=== PATIENT | male | born 1930 | race Caucasian/White ===

== ENCOUNTER 2017-03-27 14:02 | Emergency (ER) | payer MEDICARE ==
[~2017-03-27] VITALS: Ht 170.2 cm; Wt 83.7 kg
[~2017-03-27 14:02] MED LIST: ACDPT PO; ALLP100T PO; ASP81TEC PO; ATR20T PO; BSP5T PO; CLOP75TA PO; DOCU100T7 PO; FURO40TA4 PO; METO25TA PO; MULT1CAP27 PO; OMEG-12 PO; PNT40TEC PO; POTA10CA43 PO; TMSL.4C PO
[2017-03-27] MEDS ORDERED: morphine INJ 10 MG/ML 1ML (SYR OR VIAL) IV STA (14:16)
[2017-03-27] MEDS ORDERED: NS IV 500 ML 500 ML IV ONE ×2 (14:16→15:18)
--- NOTE | 2017-03-27 14:16 | ED Chest Pain ---
General Chief Complaint: Chest Pain Stated Complaint: STOMACH AND BACK PAIN/ELEV BP Source: patient Exam Limitations: no limitations History of Present Illness Time seen by provider: 14:09 Initial Comments Patient presents to ER by private conveyance with chief complaint of chest pain that started about 2 hours ago he points to his epigastric region. He says it radiates to his back he says he had this same pain when he was having a heart attack last time. He is not aware whether or not he has any abdominal aortic aneurysm or problems. He is on aspirin 81 mg. Prior to arriving at the ER he did not take any medicines such as nitroglycerin or aspirin. He says when he started having his chest pain he checked his blood pressure and it was 180s over 90s. He typically runs 115/60. He quit smoking 30-50 years ago. He does not have any thyroid issues nor does he take anything for blood pressure other than his metoprolol. he does not have diabetes. 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 He did take his Zantac at the time the pain started but it did not do anything for him. He is not having any nausea at this time. He denies any numbness or tingling in his arms hands jaw or neck. Allergies and Home Medications Allergies Coded Allergies: Sulfa (Sulfonamide Antibiotics) (Unverified Allergy, Unknown, 03/27/17) Home Medications Acetaminophen/Diphenhydramine 1 Ea Tab, 1 EA PO HS, (Reported) Allopurinol 100 Mg Tablet, 1 TAB PO DAILY, #30 (Reported) Aspirin 81 Mg Tabec, 81 MG PO DAILY, (Reported) Atorvastatin 20 Mg Tablet, 1 EACH PO DAILY, (Reported) Clopidogrel Bisulfate 75 Mg Tablet, 1 EACH PO DAILY, (Reported) Docusate Sodium 100 Mg Tablet, 100 MG PO HS, (Reported) Furosemide 40 Mg Tablet, 1 EACH PO DAILY, (Reported) Metoprolol Succinate 25 Mg Tab.sr.24h, 1 EACH PO DAILY, (Reported) Multivitamins 1 Each Capsule, 1 EACH PO DAILY, (Reported) [place]-3/Dha/Epa/Fish Oil 1 Each Capsule.dr, 1 EACH PO DAILY, (Reported) Pantoprazole Sod 40 Mg Tab, 40 MG PO HS, (Reported) Potassium Chloride 10 Meq Capsule.sa, 1 EACH PO DAILY WITH FOOD, (Reported) Tamsulosin Hcl 0.4 Mg Cap, 0.4 MG PO DAILY@12, (Reported) Review of Systems Constitutional: No chills, No diaphoresis, No fever, No malaise Respiratory: Denies Cough, Shortness of Air (mild) Cardiovascular: See HPI, Chest Pain, Edema Gastrointestinal: Denies Abdominal Pain, Denies Constipated, Denies Diarrhea, Denies Nausea Genitourinary: Denies Burning, Denies Discharge Musculoskeletal: No back pain, No joint pain Skin: No pruritus, No rash Psychiatric/Neurological: Denies Headache, Denies Numbness Past Awbugkz-Boetho-Wvsyyg Hx Patient Social History Alcohol Use: Denies Use Recreational Drug Use: No Smoking Status: Former Smoker Recent Foreign Travel: No Contact w/Someone Who Travel: No Immunizations Up To Date Date of Influenza Vaccine: May 29, 2011 Respiratory Hx Respiratory Disorders: No Cardiovascular Hx Cardiac Disorders: Yes Neurological Hx Neurological Disorders: Yes Reproductive System Hx Reproductive Disorders: No Genitourinary Hx Genitourinary Disorders: Yes Gastrointestinal Hx Gastrointestinal Disorders: Yes Musculoskeletal Hx Musculoskeletal Disorders: Yes Endocrine Hx Endocrine Disorders: No HEENT HX ENT Disorders: No Psychosocial Hx Psychiatric Problems: Yes Blood Transfusions Hx Blood Disorders: No Physical Exam Vital Signs Vital Sign - Last 12Hours 03/27/17 14:04 Temp 99.5 Pulse 70 Resp 22 B/P (MAP) 198/94 Pulse Ox 100 O2 Delivery Nasal Cannula O2 Flow Rate 2.0 FiO2 100 Capillary Refill : General Appearance: WD/WN, Anxious, Moderate Distress Neck: Non Tender, Supple Respiratory: Lungs Clear, Normal Breath Sounds Cardiovascular: Regular Rate, Rhythm, No JVD Gastrointestinal: Normal Bowel Sounds, Soft, No Abnormal Bowel Sounds, No Distended, No Guarding, No Hepatomegaly, No Mass, No Rebound, Tenderness ( epigastric) Extremity: Normal Capillary Refill, Pedal Edema (1+) Neurologic/Psychiatric: Alert, Oriented x3 Skin: Normal Color, Warm/Dry Lymphatic: No Adenopathy Focused Exam Lactic Acid Level Laboratory Tests Test 03/27/17 16:04 Lactic Acid Level 1.63 MMOL/L (0.50-2.00) Progress/Results/Core Measures Results/Orders Lab Results Laboratory Tests Test 03/27/17 14:15 03/27/17 14:25 03/27/17 16:04 Range/Units White Blood Count 15.4 H 4.3-11.0 10^3/uL Red Blood Count 4.80 4.35-5.85 10^6/uL Hemoglobin 14.8 13.3-17.7 G/DL Hematocrit 45 40-54 % Mean Corpuscular Volume 94 80-99 FL Mean Corpuscular Hemoglobin 31 25-34 PG Mean Corpuscular Hemoglobin Concent 33 32-36 G/DL Red Cell Distribution Width 14.0 10.0-14.5 % Platelet Count 263 130-400 10^3/uL Mean Platelet Volume 10.6 H 7.4-10.4 FL Neutrophils (%) (Auto) 87 H 42-75 % Lymphocytes (%) (Auto) 10 L 12-44 % Monocytes (%) (Auto) 2 0-12 % Eosinophils (%) (Auto) 1 0-10 % Basophils (%) (Auto) 0 0-10 % Neutrophils # (Auto) 13.3 H 1.8-7.8 X 10^3 Lymphocytes # (Auto) 1.5 1.0-4.0 X 10^3 Monocytes # (Auto) 0.3 0.0-1.0 X 10^3 Eosinophils # (Auto) 0.2 0.0-0.3 10^3/uL Basophils # (Auto) 0.0 0.0-0.1 10^3/uL Neutrophils % (Manual) 74 % Lymphocytes % (Manual) 9 % Monocytes % (Manual) 6 % Eosinophils % (Manual) 2 % Basophils % (Manual) 1 % Reactive Lymphocytes 8 % Blood Morphology Comment NORMAL Prothrombin Time 12.8 12.2-14.7 SEC INR Comment 1.0 0.8-1.4 Activated Partial Thromboplast Time 31 24-35 SEC D-Dimer 1.22 H 0.00-0.49 UG/ML Sodium Level 139 135-145 MMOL/L Potassium Level 4.5 3.6-5.0 MMOL/L Chloride Level 101 98-107 MMOL/L Carbon Dioxide Level 29 21-32 MMOL/L Anion Gap 9 5-14 MMOL/L Blood Urea Nitrogen 16 7-18 MG/DL Creatinine 1.37 H 0.60-1.30 MG/DL Estimat Glomerular Filtration Rate 49 BUN/Creatinine Ratio 12 Glucose Level 115 H 70-105 MG/DL Calcium Level 9.3 8.5-10.1 MG/DL Magnesium Level 2.3 1.8-2.4 MG/DL Total Bilirubin 1.9 H 0.1-1.0 MG/DL Aspartate Amino Transf (AST/SGOT) 348 H 5-34 U/L Alanine Aminotransferase (ALT/SGPT) 282 H 0-55 U/L Alkaline Phosphatase 168 H 40-136 U/L Myoglobin 62.9 10.0-92.0 NG/ML Troponin I < 0.30 <0.30 NG/ML B-Type Natriuretic Peptide 43.9 <100.0 PG/ML Total Protein 7.6 6.4-8.2 GM/DL Albumin 4.0 3.2-4.5 GM/DL Lipase 964 H 8-78 U/L Urine Color YELLOW Urine Clarity CLEAR Urine pH 6.5 5-9 Urine Specific Ehrhardt 1.010 L 1.016-1.022 Urine Protein NEGATIVE NEGATIVE Urine Glucose (UA) NEGATIVE NEGATIVE Urine Ketones NEGATIVE NEGATIVE Urine Nitrite NEGATIVE NEGATIVE Urine Bilirubin NEGATIVE NEGATIVE Urine Urobilinogen 1 NORMAL MG/DL Urine Leukocyte Esterase NEGATIVE NEGATIVE Urine RBC (Auto) NEGATIVE NEGATIVE Urine RBC NONE /HPF Urine WBC NONE /HPF Urine Squamous Epithelial Cells RARE /HPF Urine Crystals NONE /LPF Urine Bacteria NEGATIVE /HPF Urine Casts NONE /LPF Urine Mucus NEGATIVE /LPF Urine Culture Indicated NO Lactic Acid Level 1.63 0.50-2.00 MMOL/L Micro Results Microbiology 03/27/17 Blood Culture - Preliminary, Resulted No growth 03/27/17 Blood Culture - Preliminary, Resulted No growth My Orders Orders - MYKETIFFANIE J Ekg Tracing (03/27/17 14:04) Cbc With Automated Diff (03/27/17 14:16) Magnesium (03/27/17 14:16) Chest 1 View, Ap/Pa Only (03/27/17 14:16) Cardiac Profile 1 (03/27/17 14:16) Comprehensive Metabolic Panel (03/27/17 14:16) Myoglobin Serum (03/27/17 14:16) Protime With Inr (03/27/17 14:16) Partial Thromboplastin Time (03/27/17 14:16) O2 (03/27/17 14:16) Monitor-Rhythm Ecg Trace Only (03/27/17 14:16) Aspirin Chewable Tablet (Baby Aspirin Ch (03/27/17 14:30) Rx-Nitroglycerin Sl Tabs (Rx-Nitrostat S (03/27/17 14:30) Morphine Injection (Morphine Injection (03/27/17 14:16) Saline Lock/Iv-Start (03/27/17 14:16) Lipase (03/27/17 14:16) BNP (03/27/17 14:16) Fibrin Degradation Products (03/27/17 14:16) Saline Lock/Iv-Start (03/27/17 14:16) Ns Iv 500 Ml (Sodium Chloride 0.9%) (03/27/17 14:16) Manual Differential (03/27/17 14:15) Piperacillin Sodium/Tazobactam (Zosyn Vi (03/27/17 15:30) Ns Iv 500 Ml (Sodium Chloride 0.9%) (03/27/17 15:18) Ct Abdomen/Pelvis W (03/27/17 15:18) Lactic Acid Analyzer (03/27/17 15:18) Blood Culture (03/27/17 15:18) Sputum Culture (03/27/17 15:18) Ua Culture If Indicated (03/27/17 15:18) Saline Lock/Iv-Start (03/27/17 15:18) Vital Signs Adult Sepsis Patie Q1HR (03/27/17 15:18) Remove Rings In Anticipation O (03/27/17 15:18) Iohexol Injection (Omnipaque 350 Mg/Ml 1 (03/27/17 15:30) Ns (Ivpb) (Sodium Chloride 0.9% Ivpb Bag (03/27/17 15:30) Ns (Ivpb) (Sodium Chloride 0.9% Ivpb Bag (03/27/17 15:23) Ondansetron Injection (Zofran Injectio (03/27/17 16:15) Iv Infusion <= First Hr Ed (03/27/17 ) Medications Given in ED Vital Signs/I&O Vital Sign - Last 12Hours 03/27/17 03/27/17 03/27/17 03/27/17 14:04 14:04 14:04 19:22 Temp 99.5 98.8 Pulse 70 71 Resp 22 23 B/P (MAP) 198/94 Pulse Ox 100 97 O2 Delivery Nasal Cannula Nasal Cannula Nasal Cannula Nasal Cannula O2 Flow Rate 2.0 2.00 2.0 2.00 FiO2 100 Progress Note #1: Time: 14:22 Progress Note Chest pain workup that did not respond to Zantac. CT from 2011 of the chest did not demonstrate any dilatation of the thoracic aorta. Progress Note #2: Time: 15:22 Progress Note Patient's pancreatic enzymes as well as his liver enzymes and alkaline phosphatase are all elevated. Possibility of infection versus impacted stone in the common duct. He also developed fever 100.7. We will initiate antibiotic get a sepsis panel and proceed. I will choose Zosyn to start and may need Flagyl as well. Progress Note #3: Time: 17:40 Progress Note Filling defect possibly consistent with stones given the acuteness of his attacks. X-ray condition of the MRCP probably followed by an ERCP. We have a GI here however he has a GI doctor who sees him and Vik Dumont at [place]. Saturnino Kiser. Spoke with Griselda at [facility] in [place], [place]. Gave her the particulars of the Mcgrath case and she will call back after she speaks with their accepting physicians. ECG Initial ECG Impression Date: Mar 27, 2017 Initial ECG Impression Time: 14:10 Initial ECG Rate: 68 Initial ECG Rhythm: Normal Sinus Initial ECG Intervals: Normal Initial ECG Impression: Normal, Nonspecific Changes (artifact) Initial ECG Comparisson: No Previous ECG Available Comment No ST-T wave elevation or depression Diagnostic Imaging Diagonstic Imaging: Xray Plain Films/CT/US/NM/MRI: chest Comments Mild left lower lobe atelectasis VIA [facility]. [place], [place] NAME: YVETTE KAUFFMANNN Tato MED REC#: [id number] PT STATUS: REG ER : 1930 PHYSICIAN: TIFFANIE STRINGER MD ADMIT DATE: 03/27/17/ER Draft Date of Exam:03/27/17 CHEST 1 VIEW, AP/PA ONLY INDICATION: Complaining of back pain, stomach pain. History of heart attack. EXAMINATION: Chest dated 03/27/2017 COMPARISON: 12/29/2012 FINDINGS: Heart is stable. The pulmonary vasculature is minimally prominent. There is a vague density at the left lung base which could be due to focal infiltrate or atelectasis. Remaining lungs appear to be clear other than chronic senescent change noted. No significant effusions are seen. There is no pneumothorax. IMPRESSION: Atelectasis versus infiltrate left lung base with remaining chest stable. Sternotomy wires and mediastinal clips are stable. Dictated on workstation # [id number] Dict: 03/27/17 1450 Trans: 03/27/17 1453 [facility] [id number] Interpreted by: SCOTTIE LOVE MD Electronically signed by: Reviewed: Reviewed by Me Diagonstic Imaging: CT Plain Films/CT/US/NM/MRI: abdomen (pelvis with contrast) Comments VIA [place], [place] NAME: DYLAN KAUFFMAN [facility] REC#: [id number] PT STATUS: REG ER : 1930 PHYSICIAN: TIFFANIE STRINGER MD ADMIT DATE: 03/27/17/ER Draft Date of Exam:03/27/17 CT ABDOMEN/PELVIS W INDICATION: Epigastric pain. CT of the abdomen and pelvis obtained with IV contrast bolus. There is no previous studies for comparison. Visualized portion of the lung bases show an area of parenchymal scarring in the right lower lobe with associated calcification. This measured about 2.1 cm but does appear unchanged compared with 03/08/2012, this is therefore likely due to scarring. There are some pleural calcifications and pleural thickening in the pleural space on both sides which are identical to the prior study. There is no free intraperitoneal air. The liver shows no focal lesion. The gallbladder appears moderately distended but shows no pericholecystic inflammatory change. There is a question of a poorly opaque stone in the gallbladder neck. The spleen, adrenals, and pancreas appear normal. Kidneys bilaterally are unremarkable. There is no retroperitoneal mass or adenopathy. There is no ascites or abnormal fluid collection. There is prostatic enlargement. There is extensive sigmoid diverticulosis without acute diverticulitis. On the reconstructed images, there appear to be questionable filling defects in the common duct which may represent stones. IMPRESSION: Visualized portions of lung bases demonstrate bilateral parenchymal scarring and pleural calcification and thickening, which appears identical to 03/08/2012. The gallbladder is moderately distended. There are questionable filling defects in the common bile duct, consider MRCP for further evaluation as clinically warranted. There is prostatic enlargement. There are uncomplicated colonic diverticuli. Dictated on workstation # [id number] Dict: 03/27/17 1710 Trans: 03/27/17 1721 [facility] [id number] Interpreted by: ZAC NEWMAN MD Electronically signed by: Reviewed: Reviewed by Me Departure Impression Impression: Primary Impression: Cholelithiasis with choledocholithiasis Additional Impression: Pancreatitis due to biliary obstruction Qualified Codes: K85.10 - Biliary acute pancreatitis without necrosis or infection Disposition: XFER SHT-TRM HOSP ([facility]) Condition: Stable Transfer Transfer Notes 1814 accepted to room 578 by BRET Benson. The patient is well-known to the GI doctor who he is a personal patient of the [facility]. The patient most recently lived in [place] and was cared for there. We do not have GI. Since he has a GI doctor who knows him and he will likely need GI's services if the MRCP confirms that he has stones or other lesions in his common bile duct that are causing his pancreatitis and obstructive hepatitis then it is reasonable to send the patient here is fairly stable tim[ite a low grade fever at this moment on to [place] which is approximately an hour and 45 by ground ambulance. The patient is okay with this arrangement. Family is also supportive of this arrangement as they still all live in [place] and if the patient is requiring any inpatient rehabilitation afterwards they will be able to support him in [place]. Transfer Time: 19:35 Transfer Facility: [place], [place] Method of Transfer: EMS ([facility]) Departure-Patient Inst. Referrals: RICARDO GRAY MD (PCP/Family) Primary Care Physician Copy Copies To 1: RICARDO GRAY MD, TITUS J Mar 27, 2017 14:16
[2017-03-27] MEDS ORDERED: RX-NITROGLYCERIN 0.4 MG TAB BTL 25'S SL PRN (14:30)
[2017-03-27] MEDS: ASPIRIN 81 MG CHEW (CHILDREN'S ASA) PO ONE ×2 (14:36→14:40)
[2017-03-27 14:37] LABS: BASOPHILS % (AUTO) 0 % (0-10); EOSINOPHILS # (AUTO) 0.2 10^3/uL (0.0-0.3); EOSINOPHILS % (AUTO) 1 % (0-10); LYMPHOCYTES # (AUTO) 1.5 X 10^3 (1.0-4.0); LYMPHOCYTES % (AUTO) 10 % (12-44); MEAN CORPUSCULAR HEMOGLOBIN 31 PG (25-34); MEAN CORPUSCULAR HGB CONC 33 G/DL (32-36); MEAN CORPUSCULAR VOLUME 94 FL (80-99); MEAN PLATELET VOLUME 10.6 FL (7.4-10.4); MONOCYTES # (AUTO) 0.3 X 10^3 (0.0-1.0); MONOCYTES % (AUTO) 2 % (0-12); NEUTROPHILS # (AUTO) 13.3 X 10^3 (1.8-7.8); NEUTROPHILS % (AUTO) 87 % (42-75); PLATELET COUNT 263 10^3/uL (130-400); WHITE BLOOD COUNT 15.4 10^3/uL (4.3-11.0)
[2017-03-27 14:46] LABS: PROTHROMBIN TIME PATIENT 12.8 SEC (12.2-14.7)
--- NOTE | 2017-03-27 14:53 | Diagnostic Imaging Report ---
INDICATION: Complaining of back pain, stomach pain. History of heart attack. EXAMINATION: Chest dated 03/27/2017 COMPARISON: 12/29/2012 FINDINGS: Heart is stable. The pulmonary vasculature is minimally prominent. There is a vague density at the left lung base which could be due to focal infiltrate or atelectasis. Remaining lungs appear to be clear other than chronic senescent change noted. No significant effusions are seen. There is no pneumothorax. IMPRESSION: Atelectasis versus infiltrate left lung base with remaining chest stable. Sternotomy wires and mediastinal clips are stable. Dictated by: Dictated on workstation # [id number]
[2017-03-27 14:58] LABS: ALANINE AMINOTRANSFERASE 282 U/L (0-55); ANION GAP 9 MMOL/L (5-14); ASPARTATE AMINO TRANSFERASE 348 U/L (5-34); BILIRUBIN,TOTAL 1.9 MG/DL (0.1-1.0); BLOOD UREA NITROGEN 16 MG/DL (7-18); BUN/CREATININE RATIO 12; CALCIUM 9.3 MG/DL (8.5-10.1); CARBON DIOXIDE 29 MMOL/L (21-32); CHLORIDE 101 MMOL/L (98-107); CREATININE SERUM 1.37 MG/DL (0.60-1.30); GFR ESTIMATED 49; GLUCOSE 115 MG/DL (70-105); LIPASE 964 U/L (8-78); MAGNESIUM 2.3 MG/DL (1.8-2.4); POTASSIUM 4.5 MMOL/L (3.6-5.0); SODIUM 139 MMOL/L (135-145); TOTAL PROTEIN 7.6 GM/DL (6.4-8.2)
[2017-03-27 15:04] LABS: MYOGLOBIN SERUM 62.9 NG/ML (10.0-92.0)
[2017-03-27 15:05] LABS: BASOPHILS % (MANUAL) 1 %; EOSINOPHILS % (MANUAL) 2 %; LYMPHOCYTES % (MANUAL) 9 %; NEUTROPHILS % (MANUAL) 74 %; REACTIVE LYMPHOCYTES 8 %
[2017-03-27] MEDS ORDERED: NS (IVPB) 100 ML ONE (15:23)
[2017-03-27] MEDS ORDERED: NS 100 ML (IVPB) BAG IV ONE (15:30)
[2017-03-27] MEDS ORDERED: IOHEXOL 350 MG/ML 100 ML (OMNIPAQUE 350) VIAL IV ONE (15:30)
[2017-03-27] MEDS ORDERED: PIPERACILLIN/TAZO 4.5 GM VIAL (ZOSYN) IV ONE (15:30)
[2017-03-27 15:31] LABS: BILIRUBIN,URINE NEGATIVE (NEGATIVE); KETONES,URINE NEGATIVE (NEGATIVE); LEUKOCYTE ESTERASE ,URINE NEGATIVE (NEGATIVE); NITRITE,URINE NEGATIVE (NEGATIVE); PH,URINE 6.5 (5-9); PROTEIN,URINE NEGATIVE (NEGATIVE); UROBILINOGEN,URINE 1 MG/DL (NORMAL)
[2017-03-27 15:43] LABS: SQUAMOUS EPITHELIAL CELL,UR RARE /HPF
[2017-03-27] MEDS ORDERED: ONDANSETRON 4 MG/2 ML (SDV) Z0FRAN IVP ONE (16:15)
--- NOTE | 2017-03-27 17:22 | Diagnostic Imaging Report ---
INDICATION: Epigastric pain. CT of the abdomen and pelvis obtained with IV contrast bolus. There is no previous studies for comparison. Visualized portion of the lung bases show an area of parenchymal scarring in the right lower lobe with associated calcification. This measured about 2.1 cm but does appear unchanged compared with 03/08/2012, this is therefore likely due to scarring. There are some pleural calcifications and pleural thickening in the pleural space on both sides which are identical to the prior study. There is no free intraperitoneal air. The liver shows no focal lesion. The gallbladder appears moderately distended but shows no pericholecystic inflammatory change. There is a question of a poorly opaque stone in the gallbladder neck. The spleen, adrenals, and pancreas appear normal. Kidneys bilaterally are unremarkable. There is no retroperitoneal mass or adenopathy. There is no ascites or abnormal fluid collection. There is prostatic enlargement. There is extensive sigmoid diverticulosis without acute diverticulitis. On the reconstructed images, there appear to be questionable filling defects in the common duct which may represent stones. IMPRESSION: Visualized portions of lung bases demonstrate bilateral parenchymal scarring and pleural calcification and thickening, which appears identical to 03/08/2012. The gallbladder is moderately distended. There are questionable filling defects in the common bile duct, consider MRCP for further evaluation as clinically warranted. There is prostatic enlargement. There are uncomplicated colonic diverticuli. Dictated by: Dictated on workstation # [id number]
[2017-03-27 19:22] VITALS: BP 116/57
== END 2017-03-27 19:39 | disposition short-term general hospital (02) ==
LOC: EDUNIT# 14:02 → ER 14:04
DX: K80.20 Calculus of gallbladder without cholecystitis without obstruction (principal); K80.50 Calculus of bile duct without cholangitis or cholecystitis without obstruction; K85.90 Acute pancreatitis without necrosis or infection, unspecified; K83.1 Obstruction of bile duct; Z87.891 Personal history of nicotine dependence; Z79.82 Long term (current) use of aspirin
CPT/HCPCS: 36415; 71010; 74177; 80053; 81000; 83605; 83690; 83735; 83874; 83880; 84484; 85007; 85027; 85379; 85610; 85730; 87040; 93005; 93041; 96361; 96365

== ENCOUNTER 2019-03-08 21:53 | Emergency (ER) | payer MEDICARE ==
[~2019-03-08] VITALS: Ht 167.6 cm; Wt 90.7 kg
[2019-03-08] MEDS ORDERED: ASPIRIN 81 MG CHEW (CHILDREN'S ASA) PO ONE (22:15)
--- NOTE | 2019-03-08 22:16 | ED Chest Pain ---
General Chief Complaint: Chest Pain Stated Complaint: CP Source: patient Exam Limitations: no limitations History of Present Illness Date Seen by Provider: Mar 08, 2019 Time Seen by Provider: 21:51 Initial Comments Patient presents to ER by private conveyance with chief complaint she's had left-sided chest pain radiating through to his back and she woke up this morning. He thought he was constipation so a workup a bowel movement that did not improve it. He does have a history of coronary artery disease with a CABG in [place], [place]. He's known to Dr. Pari Orellana and Rogelio [place]. He has not taken any aspirin today and says that pushing on his chest or movement does not make it any worse or better. When he was set up in the bed however his pain went from a 5 to 0 spontaneously. He has not taken any nitroglycerin or aspirin today. He does not take any blood thinners anymore. He says this pain is reminiscent of the pain he experienced before his heart attack. No shortness of breath cough nausea fevers chills history of lung disease or trauma. He's had modest swelling in his hands and feet but is no longer on diuretics. He is known to Dr. Collier. Allergies and Home Medications Allergies Coded Allergies: Sulfa (Sulfonamide Antibiotics) (Unverified Allergy, Unknown, 03/27/17) Home Medications Acetaminophen/Diphenhydramine 1 Ea Tab, 1 EA PO HS, (Reported) Allopurinol 100 Mg Tablet, 1 TAB PO DAILY, (Reported) Aspirin 81 Mg Tabec, 81 MG PO DAILY, (Reported) Atorvastatin 20 Mg Tablet, 1 EACH PO DAILY, (Reported) Clopidogrel Bisulfate 75 Mg Tablet, 1 EACH PO DAILY, (Reported) Docusate Sodium 100 Mg Tablet, 100 MG PO HS, (Reported) Furosemide 40 Mg Tablet, 1 EACH PO DAILY, (Reported) Metoprolol Succinate 25 Mg Tab.sr.24h, 1 EACH PO DAILY, (Reported) Multivitamins 1 Each Capsule, 1 EACH PO DAILY, (Reported) Merced-3/Dha/Epa/Fish Oil 1 Each Capsule.dr, 1 EACH PO DAILY, (Reported) Pantoprazole Sod 40 Mg Tab, 40 MG PO HS, (Reported) Potassium Chloride 10 Meq Capsule.sa, 1 EACH PO DAILY WITH FOOD, (Reported) Tamsulosin Hcl 0.4 Mg Cap, 0.4 MG PO DAILY@12, (Reported) Patient Home Medication List Home Medication List Reviewed: Yes Review of Systems Review of Systems Constitutional: No chills, No fever, No malaise EENTM: No Blurred Vision, No Double Vision Respiratory: Denies Cough, Denies Shortness of Air Cardiovascular: See HPI, Chest Pain, Edema Gastrointestinal: Denies Abdomen Distended, Denies Abdominal Pain, Denies Constipated, Denies Diarrhea, Denies Nausea Genitourinary: Denies Burning, Denies Discharge Musculoskeletal: No back pain, No joint pain Past Eusnjfg-Vcggev-Ssvrcn Hx Patient Social History Alcohol Use: Denies Use Recreational Drug Use: No Smoking Status: Former Smoker 2nd Hand Smoke Exposure: No Recent Foreign Travel: No Contact w/Someone Who Travel: No Recent Hopitalizations: No Immunizations Up To Date Date of Pneumonia Vaccine: May 29, 2011 Date of Influenza Vaccine: May 29, 2011 Seasonal Allergies Seasonal Allergies: No Past Medical History Surgeries: Yes (bilateral foot surgery/1st finger on right hand) Respiratory: No Cardiac: Yes (heart attack, x3 bipasses) Neurological: No Reproductive Disorders: No Genitourinary: No Gastrointestinal: No Musculoskeletal: No Endocrine: No HEENT: No Cancer: No Psychosocial: No Integumentary: No Blood Disorders: No Physical Exam Vital Signs Vital Signs - First Documented 03/08/19 21:53 Temp 99.0 Pulse 84 Resp 18 B/P (MAP) 187/107 (133) Pulse Ox 98 O2 Delivery Room Air Capillary Refill : Height, Weight, BMI Height: 5'7.00" Weight: 184lbs. 8.0oz. 83.960382sp; 28.82 BMI Method:Stated General Appearance: No Apparent Distress, WD/WN HEENT: PERRL/EOMI, Normal ENT Inspection, Pharynx Normal, Moist Mucous Membranes Neck: Full Range of Motion, Normal Inspection Respiratory: Chest Non Tender, Lungs Clear, Normal Breath Sounds, No Accessory Muscle Use, No Respiratory Distress Cardiovascular: Regular Rate, Rhythm, No Edema, Normal Peripheral Pulses Gastrointestinal: Normal Bowel Sounds, No Organomegaly, Soft Extremity: Normal Capillary Refill, Normal Inspection, No Pedal Edema Neurologic/Psychiatric: Alert, Oriented x3 Progress/Results/Core Measures Results/Orders Lab Results Laboratory Tests Test 03/08/19 22:15 03/09/19 00:48 Range/Units White Blood Count 9.8 4.3-11.0 10^3/uL Red Blood Count 4.39 4.35-5.85 10^6/uL Hemoglobin 13.2 L 13.3-17.7 G/DL Hematocrit 40 40-54 % Mean Corpuscular Volume 91 80-99 FL Mean Corpuscular Hemoglobin 30 25-34 PG Mean Corpuscular Hemoglobin Concent 33 32-36 G/DL Red Cell Distribution Width 13.5 10.0-14.5 % Platelet Count 221 130-400 10^3/uL Mean Platelet Volume 10.1 7.4-10.4 FL Neutrophils (%) (Auto) 63 42-75 % Lymphocytes (%) (Auto) 23 12-44 % Monocytes (%) (Auto) 10 0-12 % Eosinophils (%) (Auto) 4 0-10 % Basophils (%) (Auto) 0 0-10 % Neutrophils # (Auto) 6.1 1.8-7.8 X 10^3 Lymphocytes # (Auto) 2.3 1.0-4.0 X 10^3 Monocytes # (Auto) 1.0 0.0-1.0 X 10^3 Eosinophils # (Auto) 0.4 H 0.0-0.3 10^3/uL Basophils # (Auto) 0.0 0.0-0.1 10^3/uL Prothrombin Time 13.5 12.2-14.7 SEC INR Comment 1.0 0.8-1.4 Activated Partial Thromboplast Time 24 24-35 SEC D-Dimer 0.73 H 0.00-0.49 UG/ML Sodium Level 139 135-145 MMOL/L Potassium Level 3.9 3.6-5.0 MMOL/L Chloride Level 108 H 98-107 MMOL/L Carbon Dioxide Level 19 L 21-32 MMOL/L Anion Gap 12 5-14 MMOL/L Blood Urea Nitrogen 19 H 7-18 MG/DL Creatinine 1.20 0.60-1.30 MG/DL Estimat Glomerular Filtration Rate 57 BUN/Creatinine Ratio 16 Glucose Level 97 70-105 MG/DL Calcium Level 8.4 L 8.5-10.1 MG/DL Corrected Calcium 8.7 8.5-10.1 MG/DL Magnesium Level 2.3 1.8-2.4 MG/DL Total Bilirubin 0.3 0.1-1.0 MG/DL Aspartate Amino Transf (AST/SGOT) 22 5-34 U/L Alanine Aminotransferase (ALT/SGPT) 24 0-55 U/L Alkaline Phosphatase 81 40-136 U/L Myoglobin 50.1 10.0-92.0 NG/ML Troponin I < 0.028 < 0.028 <0.028 NG/ML B-Type Natriuretic Peptide 65.2 <100.0 PG/ML Total Protein 6.5 6.4-8.2 GM/DL Albumin 3.6 3.2-4.5 GM/DL Lipase 42 8-78 U/L My Orders Orders - TIFFANIE STRINGER Cbc With Automated Diff (03/08/19:) Magnesium (03/08/19:) Chest 1 View, Ap/Pa Only (03/08/19:) Ekg Tracing (03/08/19:09) Cardiac Profile 1 (03/08/19:) Comprehensive Metabolic Panel (03/08/19:) Myoglobin Serum (03/08/19:) Protime With Inr (03/08/19:) Partial Thromboplastin Time (03/08/19:) O2 (03/08/19:) Monitor-Rhythm Ecg Trace Only (03/08/19:) Lipid Panel (03/09/19 06:00) Ed Iv/Invasive Line Start (03/08/19 22:09) Lipase (03/08/19 22:09) BNP (03/08/19 22:09) Aspirin Chewable Tablet (Baby Aspirin Ch (03/08/19 22:15) Fibrin Degradation Products (03/08/19 22:09) Lidocaine 2% Viscous 15 Ml (Xylocaine Vi (03/08/19 23:30) Famotidine Tablet (Pepcid Tablet) (03/08/19 23:17) Antacid Suspension (Mylanta Suspension (03/08/19 23:30) Troponin I (03/09/19 01:00) Ekg Tracing (03/08/19 23:17) Medications Given in ED Current Medications Medications Dose Ordered Sig/Jen Route Start Time Stop Time Status Last Admin Dose Admin Al Hydrox/Mg Hydrox/Simethicone 30 ml ONCE ONCE PO 03/08/19 23:30 03/08/19 23:31 DC 03/08/19 23:43 30 ML Aspirin 324 mg ONCE ONCE PO 03/08/19 22:15 03/08/19 22:16 DC 03/08/19 22:14 324 MG Lidocaine HCl 15 ml ONCE ONCE PO 03/08/19 23:30 03/08/19 23:31 DC 03/08/19 23:43 15 ML Vital Signs/I&O 03/08/19 03/08/19 21:53 22:15 Temp 99.0 Pulse 84 Resp 18 B/P (MAP) 187/107 (133) Pulse Ox 98 O2 Delivery Room Air Room Air Progress Progress Note #1: Time: 22:14 Progress Note We will give him aspirin. If his pain returns we'll trial nitroglycerin. Initial EKG unremarkable. CABG 2011. Echocardiogram 2013: Normal Left ventricular size and systolic function with an EF of 60% Diastolic dysfunction suggested. Progress Note #2: Time: 01:46 Progress Note Repeat troponin and EKG are okay. There is no chest pain. We will option the patient to go home. The patient did receive good benefit from the GI cocktail has not had any discomfort since. He admits he does not take his Zantac very regularly. We offered Carafate but he declined. He would prefer to take his Zantac and he has a follow-up appointment with Dr. Collier, primary care on Tuesday, 3 days from now. Initial ECG Impression Date: Mar 08, 2019 Initial ECG Impression Time: 21:56 Initial ECG Rate: 79 Initial ECG Rhythm: Normal Sinus Initial ECG Intervals: Normal Initial ECG Impression: Normal Initial ECG Comparisson: Unchanged Comment No clinically evident ST elevation or depression. EKG : EKG Time: 00:18 Rate: 69 Rhythm: Normal Sinus Intervals: Normal ECG Comparisson: Unchanged ECG Impression: Normal Comment No clinically evident ST elevation or depression. Diagnostic Imaging Diagonstic Imaging: Xray Plain Films/CT/US/NM/MRI: chest (1v) Comments Mild atelectasis in the right base but largely unchanged from previous x-rays. No acute cardiopulmonary process. Reviewed: Reviewed by Me Consults : Consulting Physician: Lary CAMP MD Consults Notes We discussed the case and since he's been having the chest pain throughout the day he would do a 3 hour rule out and if the patient is still pain free and -3 hours that would be reasonable to let him go home unless he would prefer to stay. Departure Impression Primary Impression: GERD (gastroesophageal reflux disease) Qualified Codes: K21.9 - Gastro-esophageal reflux disease without esophagitis Disposition: HOME, SELF-CARE Condition: Stable Departure-Patient Inst. Decision time for Depature: 01:51 Referrals: RICARDO COLLIER MD (PCP/Family) Primary Care Physician Patient Instructions: Acid Reflux (Gastroesophageal Reflux Disease), Adult (DC), Chest Pain That Is Not Caused by the Heart (DC) Add. Discharge Instructions: Please keep your follow-up appointment on Tuesday with your primary doctor. Discuss how the workup here in the ER seem to point towards your acid reflux. Take his Zantac twice a day as prescribed. Return to the ER if you experience severe chest pain again. It would be reasonable to follow up with Dr. Yañez next week if you want to call and asked for an appointment. All discharge instructions reviewed with patient and/or family. Voiced understa nding. TIFFANIE STRINGER Mar 08, 2019 22:16
[2019-03-08 22:26] LABS: BASOPHILS % (AUTO) 0 % (0-10); EOSINOPHILS # (AUTO) 0.4 10^3/uL (0.0-0.3); EOSINOPHILS % (AUTO) 4 % (0-10); HEMATOCRIT 40 % (40-54); HEMOGLOBIN 13.2 G/DL (13.3-17.7); LYMPHOCYTES # (AUTO) 2.3 X 10^3 (1.0-4.0); LYMPHOCYTES % (AUTO) 23 % (12-44); MEAN CORPUSCULAR HEMOGLOBIN 30 PG (25-34); MEAN CORPUSCULAR HGB CONC 33 G/DL (32-36); MEAN CORPUSCULAR VOLUME 91 FL (80-99); MEAN PLATELET VOLUME 10.1 FL (7.4-10.4); MONOCYTES % (AUTO) 10 % (0-12); NEUTROPHILS # (AUTO) 6.1 X 10^3 (1.8-7.8); NEUTROPHILS % (AUTO) 63 % (42-75); PLATELET COUNT 221 10^3/uL (130-400); RED CELL DISTRIBUTION WIDTH 13.5 % (10.0-14.5); WHITE BLOOD COUNT 9.8 10^3/uL (4.3-11.0)
[2019-03-08 22:39] LABS: FIBRIN DEGRADATION PRODUCTS 0.73 UG/ML (0.00-0.49); PROTHROMBIN TIME PATIENT 13.5 SEC (12.2-14.7)
[2019-03-08 22:45] LABS: ALANINE AMINOTRANSFERASE 24 U/L (0-55); ALBUMIN 3.6 GM/DL (3.2-4.5); ALKALINE PHOSPHATASE 81 U/L (40-136); BILIRUBIN,TOTAL 0.3 MG/DL (0.1-1.0); BUN/CREATININE RATIO 16; CALCIUM 8.4 MG/DL (8.5-10.1); CARBON DIOXIDE 19 MMOL/L (21-32); CHLORIDE 108 MMOL/L (98-107); GFR ESTIMATED 57; GLUCOSE 97 MG/DL (70-105); LIPASE 42 U/L (8-78); MAGNESIUM 2.3 MG/DL (1.8-2.4); POTASSIUM 3.9 MMOL/L (3.6-5.0); SODIUM 139 MMOL/L (135-145); TOTAL PROTEIN 6.5 GM/DL (6.4-8.2)
--- NOTE | 2019-03-08 23:00 | NUR ---
ASSUMED CARE OF THIS PATIENT AT THIS TIME, REPORT FROM [facility]
[2019-03-08] MEDS ORDERED: FAMOTIDINE 20 MG (PEPCID) TABLET PO STA (23:17)
[2019-03-08] MEDS ORDERED: ANTACID SUSP 30 ML UDC (MYLANTA) PO ONE (23:30)
[2019-03-08] MEDS ORDERED: LIDOCAINE 2% VISCOUS 15 ML UDC PO ONE (23:30)
--- NOTE | 2019-03-08 23:55 | NUR ---
IN ROOM TO CHECK ON PATIENT. PATIENT DENIES NEEDS AT THIS TIME, FAMILY AT BEDSIDE. VERBALLY AGREES TO USE CALL LIGHT FOR ANY NEEDS. WILL CONTINUE TO MONITOR.
--- NOTE | 2019-03-09 00:55 | NUR ---
IN ROOM TO ASSESS NEEDS. PATIENT RESTING QUIETLY, EXPLAINED TROPONIN TEST SENT TO LAB. DENIES NEEDS AT THIS TIME. WILL CONTINUE TO MONITOR, CALL LIGHT IN REACH, FAMILY AT BEDSIDE
[2019-03-09 02:00] VITALS: BP 170/86
--- NOTE | 2019-03-09 07:31 | Diagnostic Imaging Report ---
INDICATION: Chest pain. COMPARISON: 02/28/2017. FINDINGS: Portion of basilar hazy opacities. Probable small right pleural effusion. No pneumothorax. Stable enlargement of the cardiac silhouette status post CABG. IMPRESSION: Worsening basilar pulmonary opacities could be on the basis of atelectasis or edema. Dictated by: Dictated on workstation # [id number]
== END 2019-03-09 02:05 | disposition home or self-care (01) ==
LOC: ER 21:53 → EDUNIT# 22:04 → ER 03-09 02:05
DX: K21.9 Gastro-esophageal reflux disease without esophagitis (principal); I25.10 Atherosclerotic heart disease of native coronary artery without angina pectoris; I25.2 Old myocardial infarction; Z88.2 Allergy status to sulfonamides; Z95.1 Presence of aortocoronary bypass graft; Z91.14 Patient's other noncompliance with medication regimen; Z79.82 Long term (current) use of aspirin; Z79.02 Long term (current) use of antithrombotics/antiplatelets; Z87.891 Personal history of nicotine dependence
CPT/HCPCS: 36415; 71045; 80053; 83690; 83735; 83874; 83880; 84484; 85025; 85379; 85610; 85730; 93005; 93041